=== PATIENT | male | born 1965 | race Caucasian/White ===

== ENCOUNTER 2018-04-20 16:35 | Emergency (ER) | payer OTHER ==
[~2018-04-20] VITALS: Ht 185.4 cm; Wt 91.6 kg
[~2018-04-20 16:35] MED LIST: ANUSOL-HC21 GM RC; COLACE 100 MG100 MG PO; IBUPROFEN 800800 MG PO; NAPROSYN500 MG PO; NOHOMEMEDICATIONS; NORCO 5-325 TA1 EACH PO
[2018-04-20] MEDS ORDERED: ROBAXIN 750 MG750 M1 PO (17:34)
[2018-04-20] MEDS ORDERED: HYDROCODONE-AP1 EAC6 PO (17:47)
[2018-04-20 18:04] VITALS: BP 115/67
== END 2018-04-20 18:05 | disposition home or self-care (01) ==
LOC: M.ERS 16:35
DX: M54.2 Cervicalgia (principal); M54.6 Pain in thoracic spine